=== PATIENT | female | born 1955 | race Caucasian/White ===

== ENCOUNTER 2016-12-11 14:41 | Emergency (ER) | payer MEDICARE ==
[2016-12-11 14:42] VITALS: BMI 29.1
--- NOTE | 2016-12-11 15:44 | DIRPT ---
CLINICAL DATA: Shortness of breath. Weakness, nausea. EXAM: CHEST 2 VIEW COMPARISON: 03/24/2014 FINDINGS: Left dialysis catheter remains in place, unchanged. There is cardiomegaly. Vascular congestion with interstitial prominence. Bilateral lower lobe alveolar opacities. Findings likely reflect early edema. No effusions. No acute bony abnormality. IMPRESSION: Cardiomegaly with vascular congestion. Suspect early pulmonary edema. Electronically Signed By: Kenneth Amos M.D. On: 12/11/2016 15:41
[2016-12-11 15:55] LABS: AUTOMATED BASOPHIL 0.9 % (0-2); AUTOMATED EOSINOPHIL 0.9 % (0-5); AUTOMATED LYMPH 7.5 % (17-44); AUTOMATED NEUTROPHIL 82.7 % (45-76); MPV 11.3 fL (7.4-10.4)
[2016-12-11 16:07] LABS: BLOOD UREA NITROGEN 38 MG/DL (7-17); CALCIUM 8.9 MG/DL (8.4-10.2); CALCULATED OSMOLALITY 268 MOs/Kg (270-290); CHLORIDE 93 mEq/L (98-107); GLUCOSE 157 MG/DL (70-99); SODIUM LEVEL 133 mEq/L (137-146); TOTAL PROTEIN 7.3 G/DL (6.3-8.2)
[2016-12-11 16:08] LABS: PARTIAL THROMB. TIME 28.1 SEC (22-35); PT-INR 1.1
--- NOTE | 2016-12-11 16:36 | EDPRACDOC ---
- General Information Chief Complaint: Generalized Weakness Stated Complaint: DIABETIC ISSUE Time Seen by Provider: 12/11/16 15:25 Information Source: Patient Home Medications: Home Medications Calcium Carbonate [Tums] 3 tab PO .WITH MEAL & SNACKS 03/19/14 Felodipine [Felodipine ER] 10 mg PO HS 03/19/14 Hum Insulin NPH/Reg Insulin Hm [Humulin 70-30 Vial] 0 unit SQ .SLIDING SCALE Loperamide HCl [Imodium] 2 mg PO .EACH LOOSE STOOL PRN 03/19/14 Cinacalcet HCl [Sensipar] 60 mg PO DAILY 12/11/16 Folic Acid/Vitamin B Comp W-C [Renavit Tablet] 1 tab PO DAILY 12/11/16 Allergies/Adverse Reactions: Allergies Allergy/AdvReac Type Severity Reaction Status Date / Time ciprofloxacin [From Cipro] Allergy Unknown Unknown Verified 12/11/16 14:51 ciprofloxacin HCl Allergy Unknown Unknown Verified 12/11/16 14:51 [From Cipro] iron dextran complex Allergy Unknown Unknown Verified 12/11/16 14:51 Penicillins Allergy Unknown Unknown Verified 12/11/16 14:51 vancomycin Allergy Unknown Unknown Verified 12/11/16 14:51 - History of Present Illness Onset: THIS AM Exact Onset of Symptoms: Unknown Date Symptoms Started: 12/11/16 HPI: MOTHER STATES SHE HAS BEEN CONFUSED THIS AM. SHE IS DIABETIC AND MOTHER HAS HAD DIFFICULTY CONTROLLING BLOOD SUGAR. RENAL DIALYSIS- LAST YESTERDAY. PRESENTS WITH CONFUSION BY EMS. EMS FOUND BLOOD SUGAR TO BE 23. NO FEVER. GIVEN D50 AND PATIENT MORE ALERT BUT STILL CONFUSED. MOTHER STATES NORMALLY CAN WALK WITH WALKER BUT UNABLE TO RISE FROM BED TODAY. 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 negative: Chills, Fever, Loss of Appetite, Weakness Eyes: No Symptoms Reported. negative: Redness, Blurred Vision, Double Vision, Discharge, Pain, Light Sensitive, Photophobia Ears: No Symptoms Reported. negative: Pain, Hearing Loss, Drainage, Ear Pulling Throat: No Symptoms Reported. negative: Pain, Swelling Nose: No Symptoms Reported. negative: Congestion, Bleeding, Discharge, Injection, Swelling, Deformity, Ecchymosis, Tender, Abrasion, Laceration Mouth: No Symptoms Reported. negative: Pain, Drooling Respiratory: No Symptoms Reported. negative: Cough, Brassy Cough, Barky Cough, Shortness of Breath, Wheezing, Hemoptysis Cardiovascular: Syncope. negative: Chest Pain, Cyanosis, Edema, Orthopnea, Palpitations, PND, Skin Mottling Gastrointestinal: No Symptoms Reported. negative: Pain, Constipation, Nausea, Vomiting, Diarrhea, Melena, Formula Intolerance Genitourinary: No Symptoms Reported. negative: Dysuria, Hematuria, Frequency, Discharge, Bleeding, Testicular Pain, Neurological: Weakness. negative: Dizziness, Gait Difficulty, Headache, Numbness, Seizure, Speech Difficulty Musculoskeletal: No Symptoms Reported. negative: Neck, Chestwall, Ribs, Back, Shoulder, Arm, Elbow, Forearm, Wrist, Hand, Pelvis, Hip, Femur, Knee, Leg, Ankle , Foot Integumentary: No Symptoms Reported. negative: Itching, Rash, Bruising, Wound Allergic/Immunologic: No Symptoms Reported. negative: Hives, Itching Hematologic: No Symptoms Reported. negative: Lymphadenopathy, Easy Bruising, Easy Bleeding Endocrine: No Symptoms Reported. negative: Weight Gain, Weight Loss Psychiatric: No Symptoms Reported. negative: Anxiety, Depression, Hallucinations, Insomnia, Suicidal - Physical Exam Constitutional: Confused, Somnolent Oriented to: Person, Place Last recorded Vital Signs: Last Vital Signs Temp 97.7 F 12/11/16 14:42 Pulse 67 12/11/16 15:44 Resp 22 12/11/16 15:44 BP 115/59 L 12/11/16 15:44 Pulse Ox 76 L 12/11/16 15:44 Oxygen Pulse Oxygen Saturation 76 O2 Device Room Air Oxygen Flow Rate Fraction of Inspired Oxygen ( FIO2) - HEENT Head: Normal ( normocephalic) Eye Exam: Other (BLIND IN RIGHT EYE) Oropharynx: Normal (Pharynx:Moist without exudate,Gums-no swelling) Tympanic Membrane: Normal ENT EAC: Normal TMJ: Normal Nose: No Symptoms Reported (septum midline) Neck: Normal (FROM, trachea at midline) - Respiratory/Cardiovascular Respiratory: Diminished Cardiovascular: Normal (RRR without murmur, gallop or rub) - GI Auscultation: Normal (NABS) Palpation: Normal (Soft,No rebound or guarding, non distended) Tenderness: Non tender Aldrich's Sign: Negative - Bladder: Normal - Musculoskeletal Back: Normal (Non-Tender) Extremities: Normal (Normal tone, Pulses 2+ No cyanosis or edema, FROM) - Integumentary Skin: Warm, Dry, Pale Lymphatics: Normal (no adenopathy) - Neurologic Memory Impaired: Unable to Test Cranial Nerve: Unable to Test Cerebellar: Unable to Test - Results 12/11/16 15:40 12/11/16 15:40 WBC 11.4 xk/uL (3.8-10.8) H 12/11/16 15:40 RBC 3.46 xM/uL (4.20-5.40) L 12/11/16 15:40 Hgb 11.4 g/dL (12.0-16.0) L 12/11/16 15:40 Hct 35.4 % (36-47) L 12/11/16 15:40 MCV 102 fL (81-99) H 12/11/16 15:40 MCH 33.0 pg (27-32) H 12/11/16 15:40 MCHC 32.2 g/dl (33-36) L 12/11/16 15:40 RDW 15.6 % (11.5-14.5) H 12/11/16 15:40 Plt Count 176 xk/uL (130-400) 12/11/16 15:40 MPV 11.3 fL (7.4-10.4) H 12/11/16 15:40 Neut % (Auto) 82.7 % (45-76) H 12/11/16 15:40 Lymph % (Auto) 7.5 % (17-44) L 12/11/16 15:40 [place]ule[place] % (Auto) 8.0 % (3-10) 12/11/16 15:40 Eos % (Auto) 0.9 % (0-5) 12/11/16 15:40 Baso % (Auto) 0.9 % (0-2) 12/11/16 15:40 Absolute Neuts (auto) 9.35 xk/uL (1.7-8.2) H 12/11/16 15:40 Absolute Lymphs (auto) 0.80 xk/uL (0.65-4.75) 12/11/16 15:40 PT 11.3 SEC (9.2-11.2) H 12/11/16 15:40 INR 1.1 12/11/16 15:40 APTT 28.1 SEC (22-35) 12/11/16 15:40 Sodium 133 mEq/L (137-146) L 12/11/16 15:40 Potassium 3.5 mEq/L (3.5-5.1) 12/11/16 15:40 Chloride 93 mEq/L (98-107) L 12/11/16 15:40 Carbon Dioxide 25 mMOL/L (22-33) 12/11/16 15:40 Anion Gap 19 mEq/L (8-16) H 12/11/16 15:40 BUN 38 MG/DL (7-17) H 12/11/16 15:40 Creatinine 6.00 MG/DL (0.52-1.04) H 12/11/16 15:40 Estimated GFR (MDRD) 7 mL/min (>=60) L 12/11/16 15:40 Glucose 157 MG/DL (70-99) H 12/11/16 15:40 POC Capillary Glucose 123 MG/DL (70-99) H 12/11/16 15:55 Calculated Osmolality 268 MOs/Kg (270-290) L 12/11/16 15:40 Calcium 8.9 MG/DL (8.4-10.2) 12/11/16 15:40 Corrected Calcium 9.0 MG/DL (8.4-10.2) 12/11/16 15:40 Total Bilirubin 0.4 MG/DL (0.2-1.3) 12/11/16 15:40 AST 51 IU/L (14-36) H 12/11/16 15:40 ALT 54 IU/L (9-52) H 12/11/16 15:40 Alkaline Phosphatase 243 IU/L (55-165) H 12/11/16 15:40 Troponin I 0.94 ng/mL (<.04) H* 12/11/16 15:40 Total Protein 7.3 G/DL (6.3-8.2) 12/11/16 15:40 Albumin 3.9 G/DL (3.5-5.0) 12/11/16 15:40 Lab Results 12/11/16 12/11/16 12/11/16 15:55 15:40 15:40 WBC 11.4 H RBC 3.46 L Hgb 11.4 L Hct 35.4 L MCV 102 H MCH 33.0 H MCHC 32.2 L RDW 15.6 H Plt Count 176 MPV 11.3 H Neut % (Auto) 82.7 H Lymph % (Auto) 7.5 L [place] % (Auto) 8.0 Eos % (Auto) 0.9 Baso % (Auto) 0.9 Absolute Neuts (auto) 9.35 H Absolute Lymphs (auto) 0.80 PT 11.3 H INR 1.1 APTT 28.1 Sodium Potassium Chloride Carbon Dioxide Anion Gap BUN Creatinine Estimated GFR (MDRD) Glucose POC Capillary Glucose 123 H Calculated Osmolality Calcium Corrected Calcium Total Bilirubin AST ALT Alkaline Phosphatase Troponin I Total Protein Albumin 12/11/16 12/11/16 15:40 14:58 WBC RBC Hgb Hct MCV MCH MCHC RDW Plt Count MPV Neut % (Auto) Lymph % (Auto) [place] % (Auto) Eos % (Auto) Baso % (Auto) Absolute Neuts (auto) Absolute Lymphs (auto) PT INR APTT Sodium 133 L Potassium 3.5 Chloride 93 L Carbon Dioxide 25 Anion Gap 19 H BUN 38 H Creatinine 6.00 H Estimated GFR (MDRD) 7 L Glucose 157 H POC Capillary Glucose 176 H Calculated Osmolality 268 L Calcium 8.9 Corrected Calcium 9.0 Total Bilirubin 0.4 AST 51 H ALT 54 H Alkaline Phosphatase 243 H Troponin I 0.94 H* Total Protein 7.3 Albumin 3.9 - EKG EKG #1 EKG Time: 15:05 -: Yes EKG interpreted by me Rate: bpm: 67 [place]: Normal Rhythm: NSR Block: None Hypertrophy: None ST: Nonsp (FLIPPED T- WAVE LEAD III) - Departure Yes I personally saw and evaluated the patient. Disposition: Trans. to Other Hospital ([facility]) Condition: Fair Final Diagnosis: Hypoglycemia associated with diabetes, Non-STEMI (non-ST elevated myocardial infarction), Hypoxia Altered mental status Qualifiers: Altered mental status type: delirium Qualified Code(s): R41.0 - Disorientation , unspecified Chronic renal failure Qualifiers: Chronic kidney disease stage: stage 5 Qualified Code(s): N18.5 - Chronic kidney disease, stage 5 Diarrheal stools Qualifiers: Diarrhea type: unspecified type Qualified Code(s): R19.7 - Diarrhea, unspecified Instructions: Weakness (General), Renal Failure Diet (GEN), Managing Diabetes During Sick Days (ED), Diabetes and Exercise, Acute Diarrhea (ED) Education/Counseling Given To: Patient, Family Member Education/Counseling Given Regarding: Diagnosis, Treatment, Prognosis Referrals: None,No Provider [Primary Care Provider] - One Week Forms: Patient Discharge Instructions, ED Discharge Instructions Decision to Transfer Time: 16:51 - Physician Consulted Hospitalist Time Called: 16:51 Provider Called: ([facility]) Time Rn Visiting Returned Call: 16:51
[2016-12-11] MEDS ORDERED: DEXTROSE 25 GM/50 ML PFS IV PRN (16:42)
[2016-12-11] MEDS ORDERED: GLUCAGON 1 MG VIAL SQ PRN (16:42)
[2016-12-11] MEDS ORDERED: GLUCOSE (ORAL GEL) 15 GM TUBE PO PRN (16:42)
[2016-12-11 17:15] LABS: ABG Draw Site Right Brachial; ALLEN'S TEST PASS; BEb 0.6 (+/- 2)
--- NOTE | 2016-12-11 17:42 | DIRPT ---
CLINICAL DATA: Altered mental status. EXAM: CT HEAD WITHOUT CONTRAST TECHNIQUE: Contiguous axial images were obtained from the base of the skull through the vertex without intravenous contrast. COMPARISON: CT scan of March 19, 2014. FINDINGS: Bony calvarium appears intact. Minimal diffuse cortical atrophy is noted. Mild chronic ischemic white matter disease is noted. No mass effect or midline shift is noted. Ventricular size is within normal limits. There is no evidence of mass lesion, hemorrhage or acute infarction. IMPRESSION: Minimal diffuse cortical atrophy. Mild chronic ischemic white matter disease. No acute intracranial abnormality seen. Electronically Signed By: Ruben Pepe Jr, M.D. On: 12/11/2016 17:39
[2016-12-11] MEDS ORDERED: DEXTROSE 25 GM/50 ML PFS IV ONE (18:10)
[2016-12-11 19:38] VITALS: BP 139/65; PULSE 69
[2016-12-11 19:47] VITALS: TEMP 98.3
== END 2016-12-11 19:47 | disposition home or self-care (01) ==
LOC: ED 14:41
DX: I21.4 Non-ST elevation (NSTEMI) myocardial infarction (principal); R09.02 Hypoxemia; E11.649 Type 2 diabetes mellitus with hypoglycemia without coma; R41.0 Disorientation, unspecified; R19.7 Diarrhea, unspecified; I12.0 Hypertensive chronic kidney disease with stage 5 chronic kidney disease or end stage renal disease; N18.5 Chronic kidney disease, stage 5
CPT/HCPCS: 36415; 36600; 70450; 71020; 80053; 82803; 82962; 84484; 85025; 85610; 85730; 93005; 96374; 99285; J7060